=== PATIENT | male | born 1945 | race Caucasian/White ===

== ENCOUNTER 2025-06-20 13:10 | Outpatient (CLI) | payer MEDICARE, SELFPAY ==
--- OUTSIDE RECORDS SUMMARY | 2025-06-20 13:13 | XMS_ITS | Clinical Summary ---
Author Organization [facility] Address [address] [place] [address] Care Team Providers Care In Home Tutor Name Role Phone Yuli Wise Primary Care Provider [phone] Allergies No known active allergies Medications amLODIPine (NORVASC) 5 mg tablet 06/10/2020 Active aspirin 81 mg enteric coated tablet Take 1 tablet (81 mg total) by mouth daily Active losartan (COZAAR) 100 mg tablet 06/10/2020 Active niacin ER (NIASPAN) 1,000 mg CR tablet Take 1 tablet (1,000 mg total) by mouth daily Active simvastatin (ZOCOR) 40 mg tablet 07/07/2020 Active ALPRAZolam (XANAX) 0.5 mg tabletIndicatio ns:anxiety Take 1 tablet (0.5 mg total) by mouth nightly as needed for anxiety for up to 1 day 1 tablet 07/30/2024 Active carvediloL (COREG) 12.5 mg tablet Take 1 tablet (12.5 mg total) by mouth 2 (two) times a day with meals 09/29/2023 Active tamsulosin (FLOMAX) 0.4 mg extended release capsule Take 1 capsule (0.4 mg total) by mouth daily 09/29/2023 Active cyanocobalamin (Vitamin B-12) 1,000 mcg tabletIndicatio ns:Prevention of Vitamin B12 Deficiency Take 1 tablet (1,000 mcg total) by mouth daily Active multivitamin with minerals tablet Take 1 tablet by mouth daily Active oxyCODONE (ROXICODONE) 5 mg immediate release tabletIndicatio ns:Pain Take 1 tablet (5 mg total) by mouth every 4 (four) hours as needed for pain 10 tablet 08/07/2024 Active Active Problems Problem Noted Date Diagnosed Date Carpal tunnel syndrome of right wrist 07/29/2024 Surgical History Surgery Date Site/Laterality Comments TONSILLECTOMY CATARACT EXTRACTION, BILATERAL CARPAL TUNNEL RELEASE 08/07/2022 Left Medical History Medical History Date Comments Hypercholesteremia Hypertension Family History Medical History Relation Name Comments No Known Problems Father No Known Problems Mother Relation Name Status Comments Father Mother Social History Tobacco Use Types Packs/Day Years Used Date Smoking Tobacco: Former Smokeless Tobacco: Never Alcohol Use Standard Drinks/Week Comments Never 0 (1 standard drink = 0.6 oz pur e alcohol) AUDIT-C Answer Date Recorded Q1: How often do you have a drink containing alcohol? Never 08/07/2024 Q2: How many drinks containi ng alcohol do you have on a typical day when you are drinking? Patient does not drink Q3: How often do you have si x or more drinks on one occasion? Never 08/07/2024 Personal Safety Answer Date Recorded Have you ever been in or are you currently in a harmful physical or emotional relationship or is someone making you feel afraid or unsafe? Denies 08/07/2024 Sex and Gender Information Value Date Recorded Sex Assigned at Not on file Legal Sex Male 12:11 PM AU PAIR Gender Identity Not on file Sexual Orientation Not on file Occupation Industry Job Start Date Job End Date retired Not on file Not on file Not on file Last Filed Vital Signs Vital Sign Reading Time Taken Comments Blood Pressure 124/71 08/07/2024 10:30 AM AU PAIR Pulse 57 08/07/2024 10:30 AM AU PAIR Temperature 36.1 C (97 F) 08/07/2024 10:15 AM AU PAIR Respiratory Rate 16 08/07/2024 10:3 0 AM AU PAIR Oxygen Saturation 94% 08/07/2024 10: 30 AM AU PAIR Inhaled Oxygen Concentration - - Weight 112.1 kg (247 lb 1.6 oz) 08/07/2024 8:40 AM AU PAIR Height 177.8 cm (5' 10) 08/07/2024 8:40 AM AU PAIR Body Mass Index 35.46 08/07/2024 8:40 AM AU PAIR Plan of Treatment Health Maintenance Due Date Last Done Comments Depression Screening 1945 Hepatitis C Screening 1945 DTaP/Tdap/Td Vaccine (1 - Tdap) 11/02/1958 Hepatitis B Screening 11/02/1965 Pneumococcal vaccine 65+ (1 of 1 - PCV) 11/02/1997 Abdominal Aortic Aneurysm (A AA) Screen 11/02/2012 Well Visit 65+ 11/02/2012 Covid-19 Vaccine (6 2024-2 6 season) 2025 05/27/2022, 10/29/2021, 05/26/2021, Additional history exists Influenza Vaccine (#1) 2025 , 03/19/2021, 03/23/2020, Additional history exists Fall Risk Assessment 08/07/2025 08/07/2024 Zoster Vaccine Completed 06/21/2019, 04/15/2019 Insurance [facility] Address: [facility] [id number] [place] [id number] [facility] MEDICARE Care Teams In Home Tutor Relationship Specialty Start Date End Date Yuli Wise PA [address] [place] [id number] PCP - General Family Practice 07/29/24
--- OUTSIDE RECORDS SUMMARY | 2025-06-20 13:13 | XMS_ITS | Encounter Summary ---
Author Organization [facility] Address [facility] [place] [address] Care Team Providers Care Drupal Php Developer Name Role Phone Anselmo Trevino MD Primary Care Provider [phone] Merle Little Primary Care Provider [phone] Yuli Wise PA-C Primary Care Provider [phone] Encounter Details Date Type Department Care Team (Late st Contact Info) Description 01/17/2020 Prep for Procedure [facility] [address] [place], [place] [id number] Rock Arguello MD [address] [id number] Social History Tobacco Use Types Packs/Day Years Used Date Smoking Tobacco: Former Cigarettes Q uit: 2008 Smokeless Tobacco: Never Alcohol Use Standard Drinks/Week Comments No 0 (1 standard drink = 0.6 oz pur e alcohol) AUDIT-C Answer Date Recorded Frequency of Alcohol Consumption Never 12/17/2018 Average Number of Drinks Not on file 019 Frequency of Binge Drinking Not on file 11/29 Sex and Gender Information Value Date Recorded Sex Assigned at Male 09/19/2024 8:47 AM STEAM TENDER Legal Sex Male 8:34 PM CDT Gender Identity Male 09/19/2024 9:04 AM STEAM TENDER Sexual Orientation Not on file COVID-19 Exposure Response Date Recorded In the last month, have you been in contact with someone who was confirmed or suspected to have Coronavirus / COVID-19? No / Unsure 12/27/2019 1:09 PM CDT documented as of this encounter Plan of Treatment Upcoming Encounters Date Type Department Care Team (Late st Contact Info) Description 06/11/2026 9:30 AM STEAM TENDER Office Visit [facility] [address] [place] [address] Derrick Bautista MD Three [facility]. [address] [address] documented as of this encounter Visit Diagnoses Diagnosis Pre-op testing- Primary Preoperative examination, unspecified documented in this encounter Additional Health Concerns Infection Onset Date Last Indicated Resolved Time COVID-19 Rule Out 01/22/2020 01/23/2020 01/24/2020 8:57 AM CDT documented as of this encounter Care Teams Drupal Php Developer Relationship Specialty Start Date End Date Anselmo Trevino MD [address] [place] [address] PCP - General INTERNAL MEDICINE 12/17/18 03/08/22 Merle Little PA [address] [place] [address] PCP - General PHYSICIAN SALES REPRESENTATIVE GIRLS' APPAREL 03/09/22 02/27/24 Ylui Wise PA-C [address] [place], [place] [address] [place] [address] PCP - General PHYSICIAN SALES REPRESENTATIVE GIRLS' APPAREL 02/28/24 documented as of this encounter
--- OUTSIDE RECORDS SUMMARY | 2025-06-20 13:13 | XMS_ITS | Patient Health Record ---
Author Organization [facility] Address [address] [place], [place] [id number] Care Team Providers Care Taker Off Hemp Fiber Name Role Phone KEVEN Baxter Unavailable Anselmo Trevino Unavailable Unavailable Reason For Referral No Information Social History Social History Additional Details Category Social Info Options Details Migrated Social History Migrated Social History Smoking Status : Never smoked , History of tobacco use : Plan Of Treatment No Information Insurance Providers Payer Name Payer Address Payer Phone Subscriber Number Group Number Insured Name Patient Relationship to Insured Coverage Start Date Coverage End Date [facility] [address] [address] [place] [id number] SHIRA BYNUM Self - patient is the insured
--- OUTSIDE RECORDS SUMMARY | 2025-06-20 13:13 | XMS_ITS | Clinical Summary ---
Author Organization [facility] Address [facility] [place] [address] Care Team Providers Care Cosmetic Account Coordinator Name Role Phone Yuli Wise PA-C Primary Care Provider [phone] Allergies No known active allergies Medications amlodipine 5 MG tablet Take 1 tablet (5 mg total) by mouth daily. 09/04/2018 Active losartan 100 MG tablet Take 1 tablet (100 mg total) by mouth daily. 09/04/2018 Active simvastatin 40 MG tablet Take 1 tablet (40 mg total) by mouth nightly at bedtime. 09/04/2018 Active niacin CR 1000 MG tablet Take 1 tablet (1,000 mg total) by mouth daily with supper. Active tamsulosin (FLOMAX) 0.4 MG Cap Take 1 capsule (0.4 mg total) by mouth daily. 03/27/2024 Active carvedilol (COREG) 12.5 MG tablet Take 1 tablet (12.5 mg total) by mouth 2 (two) times daily. 04/15/2024 Active vitamin B-12 (CYANOCOBALAMIN ) (CYANOCOBALAMIN ) 1000 mcg tablet Take 1 tablet (1,000 mcg total) by mouth daily. Active multi vitamin/mineral s (CENTRUM ADULTS) tablet Take 1 tablet by mouth daily. Active aspirin EC (ECOTRIN) 81 MG tablet Take 1 tablet (81 mg total) by mouth daily. 06/10/2024 Active Active Problems No known active problems Encounters Date Type Department Care Team Description 06/09/2025 9:15 AM ENTRY LEVEL PARALEGAL Office Visit [facility] [address] [place] [address] Mariana Chi FNP Follow Up (Coronary artery calcification); Aortic Valve Stenosis; Hypertension; Lipids 06/09/2025 Travel 05/30/2025 Abstract [facility] THREE [facility] [place] [address] Jesus Cronin MA 04/26/2025 4:51 PM CDT - 04/26/2025 6:25 PM CDT Emergency [facility] Emergency Room [address] [place] [address] Yanira Musa MD Skin Lesion With Prolonged Bleeding (Bleeding from area of earlier fish hook removal) Discharge Disposition: Home or Self Care (Routine Discharge) 04/26/2025 9:27 AM CDT - 04/26/2025 10:30 AM CDT Emergency [facility] Emergency Room [address] [place] [address] Yanira Musa MD Finger Injury Discharge Disposition: Home or Self Care (Routine Discharge) 04/26/2025 Travel from Last 3 Months Immunizations Immunization Administration Dates Next Due Fluzone High Dose - >Age 65 (Prefilled Syringe) 03/19/2021,03/23/2020,04/15/2019,2017,04/16/2017,04/05/2016,04/13/2015 Influenza Adult (Generic) 03/28/2022,04/28/2014 MODERNA COVID-19 BIVALENT (1 2+), MRNA, LNP-S, PF 05/27/2022 MODERNA COVID-19 (12+) MRNA, LNP-S, PF, 100 MCG/ 0.5 ML DOSE 10/29/2021,05/26/2021,10/01/2020,2020 Shingrix 06/21/2019,04/15/2019 Tdap (Boostrix) 04/26/2025 Social History Tobacco Use Types Packs/Day Years Used Date Smoking Tobacco: Former Cigarettes Q uit: 2008 Smokeless Tobacco: Never Tobacco Cessation:Counseling Given: No Alcohol Use Standard Drinks/Week Comments No 0 (1 standard drink = 0.6 oz pur e alcohol) AUDIT-C Answer Date Recorded Frequency of Alcohol Consumption Never 12/17/2018 Average Number of Drinks Not on file 019 Frequency of Binge Drinking Not on file 11/29 PHQ-2 Answer Date Recorded Patient Health Questionnaire-2 Score 0 09/19/2024 Sex and Gender Information Value Date Recorded Sex Assigned at Male 09/19/2024 8:47 AM ENTRY LEVEL PARALEGAL Legal Sex Male 8:34 PM CDT Gender Identity Male 09/19/2024 9:04 AM ENTRY LEVEL PARALEGAL Sexual Orientation Not on file Last Filed Vital Signs Vital Sign Reading Time Taken Comments Blood Pressure 150/70 06/09/2025 9:02 AM ENTRY LEVEL PARALEGAL Pulse 63 06/09/2025 9:02 AM ENTRY LEVEL PARALEGAL Temperature 36.6 C (97.9 F) 04/26/2025 4:57 PM CDT Respiratory Rate 17 04/26/2025 4:57 PM CDT Oxygen Saturation 96% 06/09/2025 9:02 AM ENTRY LEVEL PARALEGAL Inhaled Oxygen Concentration - - Weight 109.8 kg (242 lb) 06/09/2025 9:02 AM ENTRY LEVEL PARALEGAL Height 177.8 cm (5' 10) 06/09/2025 9:02 AM ENTRY LEVEL PARALEGAL Body Mass Index 34.72 06/09/2025 9:02 AM ENTRY LEVEL PARALEGAL Plan of Treatment Upcoming Encounters Date Type Department Care Team (Late st Contact Info) Description 06/11/2026 9:30 AM ENTRY LEVEL PARALEGAL [facility] [address] [place] [address] Derrick Bautista MD [facility]. [address] [address] Health Maintenance Due Date Last Done Comments Hepatitis C 11/02/1965 Pneumococcal Vaccine: 50+ Years (1 of 2 - PCV) 11/02/1966 Annual Medicare Wellness Visit 11/02/2012 RSV Immunization or 60+ Years (1 - 1-dose 75+ series) 11/02/2022 COVID-19 Vaccine ( - season) 2025 05/27/2022, 10/29/2021, 05/26/2021, Additional history exists Influenza Adult (#1) 2025 03/28/2022, 03/19/2021, 03/23/2020, Additional history exists DTaP, Tdap and Td Vaccines (2 - Td or Tdap) 04/26/2035 04/26/2025 Zoster Vaccines Completed 06/21/2019, 04/15/2019 Colorectal Cancer Screening Colonoscopy (10 Years) Discontinued 01/24/2020 PHQ-2 (Physician [place]) Completed 09/19/2024 Hepatitis A Vaccines Aged Out No long er eligible based on patient's age to complete this topic Meningococcal B Vaccine Aged Out No l onger eligible based on patient's age to complete this topic Meningococcal Vaccine Aged Out No morgan mehdi eligible based on patient's age to complete this topic RSV Immunizations Under 20 Months Aged Out No longer eligible based on patient's age to complete this topic Procedures Procedure Name Priority Date/Time Associated Diagnosis Comments LACERATION REPAIR Routine 04/26/2025 6:2 5 PM CDT FOREIGN BODY REMOVAL Routine 04/26/2025 10:24 AM CDT from Last 3 Months Results * Lac Repair (04/26/2025 6:25 PM CDT) Narrative Yanira Musa MD - 04/26/2025 6:25 PM CDT Yanira Musa MD 04/27/2025 10:40 PM Lac Repair Date/Time: 04/26/2025 6:25 PM Performed by: Yanira Musa MD Authorized by: Yanira Musa MD Consent: Consent obtained: Verbal Consent given by: Patient Risks, benefits, and alternatives were discussed: yes Risks discussed: Infection, need for additional repair, poor wound healing, poor cosmetic result and pain Chrisney protocol: Procedure explained and questions answered to patient or proxy's satisfaction: yes Laceration details: Location: Finger Finger location: R index finger Length (cm): 0.4 Depth (mm): 3 Pre-procedure details: Preparation: Patient was prepped and draped in usual sterile fashion Exploration: Hemostasis obtained with: attempted with silver nitrate and txa topical without success. Treatment: Area cleansed with: Chlorhexidine Amount of cleaning: Standard Irrigation solution: Sterile saline Irrigation volume: 20 Irrigation method: Syringe Skin repair: Repair method: Sutures Suture size: 5-0 Suture material: Nylon Suture technique: Figure eight (2 simple interrupted 4-0 ethiolon sutures were not sccessful. One figure of eight added for hemostasis.) Repair type: Repair type: Intermediate Post-procedure details: Dressing: Antibiotic ointment and non-adherent dressing Procedure completion: Tolerated well, no immediate complications Yanira Musa MD PROCEDURE/MINOR SURGICAL ORD ERABLES Final Result * Foreign Body (04/26/2025 10:24 AM CDT) Narrative Yanira Musa MD - 04/26/2025 10:24 AM CDT Yanira Musa MD 04/27/2025 3:53 PM Foreign Body Date/Time: 04/26/2025 10:24 AM Performed by: Yanira Musa MD Authorized by: Yanira Musa MD Consent: Consent obtained: Verbal Consent given by: Patient Risks, benefits, and alternatives were discussed: yes Risks discussed: Bleeding, infection, pain, poor cosmetic result and nerve damage Chrisney protocol: Procedure explained and questions answered to patient or proxy's satisfaction: yes Patient identity confirmed: Verbally with patient Location: Location: Finger Finger location: R index finger Depth: Intramuscular Tendon involvement: None Pre-procedure details: Imaging: None Neurovascular status: intact Anesthesia: Anesthesia method: Local infiltration Local anesthetic: Lidocaine 1% WITH epi Procedure type: Procedure complexity: Simple Procedure details: Incision length: 2mm Foreign bodies recovered: 1 Description: Ne augustin Intact foreign body removal: yes Post-procedure details: Neurovascular status: intact Confirmation: No additional foreign bodies on visualization Skin closure: None Dressing: Antibiotic ointment and non-adherent dressing Procedure completion: Tolerated well, no immediate complications Yanira Musa MD PROCEDURE/MINOR SURGICAL ORD ERABLES Final Result from Last 3 Months Insurance [employer] MEDICARE Care Teams Cosmetic Account Coordinator Relationship Specialty Start Date End Date Yuli Wise PA-C [address] [place] [address] [address] [place] [address] PCP - General PHYSICIAN LINDERMAN OPERATOR 02/28/24
--- OUTSIDE RECORDS SUMMARY | 2025-06-20 13:13 | XMS_ITS | Encounter Summary ---
Author Organization [facility] Address [facility] [place] [address] Care Team Providers Care Mid Level Practitioner Name Role Phone Yuli Wise PA-C Primary Care Provider [phone]- [phone] Encounter Details Date Type Department Care Team (Late st Contact Info) Description 05/30/2025 Abstract [facility] [address] Jesus Cronin MA Social History Tobacco Use Types Packs/Day Years [...] Sex Assigned at Male 09/19/2024 8:47 AM REPACKER Legal Sex Male 8:34 PM CDT Gender Identity Male 09/19/2024 9:04 AM REPACKER Sexual Orientation Not on file documented as of this encounter Plan of Treatment Upcoming Encounters Date Type Department Care Team (Late st Contact Info) Description 06/11/2026 9:30 AM REPACKER [facility] [address] [place] [address] Derrick Bautista MD Three [facility]. [address] [address] documented as of this encounter Procedures Procedure Name Priority Date/Time Associated Diagnosis Comments HEMOGLOBIN, GLYCOSYLATED Routine 11/26/2024 COMPREHENSIVE METABOLIC PANEL Routine 11/26/2024 LIPID PANEL Routine 11/26/2024 CBC, MANUAL DIFF Routine 11/26/2024 THYROID STIM HORMONE TSH Routine 11/26/2024 documented in this encounter Results * COMPREHENSIVE METABOLIC PANEL (11/26/2024) SODIUM S/P/B 140 GLUCOSE 117 mg/dL AST 25 BUN 16 CREATININE S/P/B 1.02 0.7 - 1.3 CALCIUM S/P/B 9.1 POTASSIUM S/P/B 4.8 CHLORIDE S/P/B 103 ALT 25 GFR ESTIMATE 76 us Default History Genericprovider LABORATORY Final Result * LIPID PANEL (11/26/2024) CHOLESTEROL 105 TRIGLYCERIDES 134 HDL 39 LDL (CALCULATED) 44 NON HDL CHOLESTEROL 66 us Default History Genericprovider LABORATORY Final Result * CBC, MANUAL DIFF (11/26/2024) WBC 7.9 HGB 15.9 HCT 48.3 PLT 205 us Default History Genericprovider LABORATORY Final Result * HEMOGLOBIN, GLYCOSYLATED (11/26/2024) HGB A1C 5.9 % us Default History Genericprovider LABORATORY Final Result * THYROID STIM HORMONE TSH (11/26/2024) TSH 1.59 us Default History Genericprovider LABORATORY Final Result documented in this encounter Visit Diagnoses Not on filedocumented in this encounter Care Teams Mid Level Practitioner Relationship Specialty Start Date End Date Yuli Wise PA-C [facility] [place] [place] [address] PCP - General PHYSICIAN PLANT BIOLOGY PROFESSOR 02/28/24 documented as of this encounter
== END 2025-06-20 13:11 | disposition home or self-care (01) ==
LOC: ANHAUDIO 13:11
PROVIDERS: PCP Physician Assistant Medical; Visit Provider Physician Assistant Medical
DX: H91.90 Unspecified hearing loss, unspecified ear (principal)
CPT/HCPCS: 92567

== ENCOUNTER 2025-07-03 10:30 | Outpatient (CLI) | payer MEDICARE, SELFPAY ==
--- OUTSIDE RECORDS SUMMARY | 2025-07-03 11:43 | XMS_ITS | Encounter Summary ---
Author Organization [facility] Address [facility] [place] [address] Care Team Providers Care Mobile Pet Groomer Name Role Phone Yuli Wise PA-C Primary Care Provider [phone] Encounter Details Date Type Department Care Team (Late st Contact Info) Description 05/30/2025 Abstract [facility] [address] Jesus Cronin MA Social History Tobacco Use [...] Sex Assigned at Male 09/19/2024 8:47 AM SUPERVISOR LEAD REFINERY Legal Sex Male 8:34 PM CDT Gender Identity Male 09/19/2024 9:04 AM SUPERVISOR LEAD REFINERY Sexual Orientation Not on file documented as of this encounter Plan of Treatment Upcoming Encounters Date Type Department Care Team (Late st Contact Info) Description 06/11/2026 9:30 AM SUPERVISOR LEAD REFINERY [facility] [address] [place] [address] Derrick Bautista MD Three [facility]. [address] [address] documented as of this encounter Procedures Procedure [...] on filedocumented in this encounter Care Teams Mobile Pet Groomer Relationship Specialty Start Date End Date Yuli Wise PA-C [facility] [place] [address] PCP - General PHYSICIAN PHARMACEUTICAL BOTANIST 02/28/24 documented as of this encounter
--- OUTSIDE RECORDS SUMMARY | 2025-07-03 11:43 | XMS_ITS | Patient Health Record ---
Author Organization [facility] Address [address] [place], [place] [id number] Care Team Providers Care Lock And Dam Equipment Repairer Name Role Phone KEVEN Baxter Unavailable Anselmo [...] Insured Coverage Start Date Coverage End Date [facility] [address] [address] [place] [id number] SHIRA BYNUM Self - patient is the insured
--- OUTSIDE RECORDS SUMMARY | 2025-07-03 11:43 | XMS_ITS | Clinical Summary ---
Author Organization [facility] Address [facility] [place] [address] Care Team Providers Care Data Warehouse Administrator Name Role Phone Yuli Wise PA-C Primary Care Provider [phone] Allergies No known active allergies Medications amlodipine [...] Department Care Team Description 06/09/2025 9:15 AM INFANTRY WEAPONS OFFICER Office Visit [facility] [address] [place] [address] Mariana Chi FNP Follow Up (Coronary artery calcification); Aortic Valve Stenosis; Hypertension; Lipids 06/09/2025 Travel 05/30/2025 Abstract [facility] [address] [place] [address] Jesus Cronin MA 04/26/2025 4:51 PM CDT - 04/26/2025 6:25 PM CDT Emergency [facility] [address] [place] [id number] Yanira Musa MD Skin Lesion With Prolonged Bleeding (Bleeding from area of earlier fish hook removal) Discharge Disposition: Home or Self Care (Routine Discharge) 04/26/2025 9:27 AM CDT - 04/26/2025 10:30 AM CDT Emergency [facility] [address] [place] [address] Yanira Musa MD Finger Injury Discharge Disposition: [...] Sex Assigned at Male 09/19/2024 8:47 AM INFANTRY WEAPONS OFFICER Legal Sex Male 8:34 PM CDT Gender Identity Male 09/19/2024 9:04 AM INFANTRY WEAPONS OFFICER Sexual Orientation Not on file Last Filed Vital Signs Vital Sign Reading Time Taken Comments Blood Pressure 150/70 06/09/2025 9:02 AM INFANTRY WEAPONS OFFICER Pulse 63 06/09/2025 9:02 AM INFANTRY WEAPONS OFFICER Temperature 36.6 C (97.9 F) 04/26/2025 4:57 PM CDT Respiratory Rate 17 04/26/2025 4:57 PM CDT Oxygen Saturation 96% 06/09/2025 9:02 AM INFANTRY WEAPONS OFFICER Inhaled Oxygen Concentration - - Weight 109.8 kg (242 lb) 06/09/2025 9:02 AM INFANTRY WEAPONS OFFICER Height 177.8 cm (5' 10) 06/09/2025 9:02 AM INFANTRY WEAPONS OFFICER Body Mass Index 34.72 06/09/2025 9:02 AM INFANTRY WEAPONS OFFICER Plan of Treatment Upcoming Encounters Date Type Department Care Team (Late st Contact Info) Description 06/11/2026 9:30 AM INFANTRY WEAPONS OFFICER [facility] [address] [place] [phone] Derrick Bautista MD [facility]. [address] [address] Health Maintenance Due Date Last Done Comments [...] Colonoscopy (10 Years) Discontinued 01/24/2020 PHQ-2 (Physician Adrian) Completed 09/19/2024 Hepatitis A Vaccines Aged Out [...] wound healing, poor cosmetic result and pain [place] protocol: Procedure explained and questions answered to [...] pain, poor cosmetic result and nerve damage [place] protocol: Procedure explained and questions answered to [...] 3 Months Insurance [employer] MEDICARE Care Teams Data Warehouse Administrator Relationship Specialty Start Date End Date Yuli Wise PA-C [address] [place] [address] [address] [place] [address] PCP - General PHYSICIAN CUSTOMER ASSISTANCE REPRESENTATIVE 02/28/24
--- OUTSIDE RECORDS SUMMARY | 2025-07-03 11:43 | XMS_ITS | Clinical Summary ---
Author Organization [facility] Address [address] [place] [address] Care Team Providers Care Eyeglass Maker Name Role Phone Yuli Wise Primary Care Provider [phone] Allergies No known active allergies Medications amLODIPine [...] on file Legal Sex Male 12:11 PM NAIL SPECIALIST Gender Identity Not on file Sexual Orientation Not on file Occupation Industry Job Start Date Job End Date retired Not on file Not on file Not on file Last Filed Vital Signs Vital Sign Reading Time Taken Comments Blood Pressure 124/71 08/07/2024 10:30 AM NAIL SPECIALIST Pulse 57 08/07/2024 10:30 AM NAIL SPECIALIST Temperature 36.1 C (97 F) 08/07/2024 10:15 AM NAIL SPECIALIST Respiratory Rate 16 08/07/2024 10:3 0 AM NAIL SPECIALIST Oxygen Saturation 94% 08/07/2024 10: 30 AM NAIL SPECIALIST Inhaled Oxygen Concentration - - Weight 112.1 kg (247 lb 1.6 oz) 08/07/2024 8:40 AM NAIL SPECIALIST Height 177.8 cm (5' 10) 08/07/2024 8:40 AM NAIL SPECIALIST Body Mass Index 35.46 08/07/2024 8:40 AM NAIL SPECIALIST Plan of Treatment Health Maintenance Due Date [...] 08/07/2024 Zoster Vaccine Completed 06/21/2019, 04/15/2019 Insurance [facility] Care Teams Eyeglass Maker Relationship Specialty Start Date End Date Yuli Wise PA [address] [place] [id number] PCP - General Family Practice 07/29/24
--- OUTSIDE RECORDS SUMMARY | 2025-07-03 11:43 | XMS_ITS | Encounter Summary ---
Author Organization [facility] Address [facility] [place] [address] Care Team Providers Care Information Technology Manager Name Role Phone Anselmo Trevino MD Primary Care Provider [phone] Merle Little Primary Care Provider [phone] Yuli Wise PA-C Primary Care Provider [phone] Encounter Details Date Type Department Care Team (Late st Contact Info) Description 01/17/2020 Prep for Procedure [facility] [address] [place], [place] [id number] Rock Arguello MD [address] [id number] Social History Tobacco Use Types Packs/Day Years [...] Sex Assigned at Male 09/19/2024 8:47 AM LICENSED INSURANCE SALES AGENT Legal Sex Male 8:34 PM CDT Gender Identity Male 09/19/2024 9:04 AM LICENSED INSURANCE SALES AGENT Sexual Orientation Not on file COVID-19 Exposure Response Date Recorded In the last month, have you been in contact with someone who was confirmed or suspected to have Coronavirus / COVID-19? No / Unsure 12/27/2019 1:09 PM CDT documented as of this encounter Plan of Treatment Upcoming Encounters Date Type Department Care Team (Late st Contact Info) Description 06/11/2026 9:30 AM LICENSED INSURANCE SALES AGENT Office Visit [facility] [address] [place] [address] Derrick Bautista MD [facility] [place]. [address] [address] documented as of this encounter Visit Diagnoses Diagnosis Pre-op testing- Primary Preoperative examination, unspecified documented in this encounter Additional Health Concerns Infection Onset Date Last Indicated Resolved Time COVID-19 Rule Out 01/22/2020 01/23/2020 01/24/2020 8:57 AM CDT documented as of this encounter Care Teams Information Technology Manager Relationship Specialty Start Date End Date Anselmo Trevino MD [address] [place] [phone] PCP - General INTERNAL MEDICINE 12/17/18 03/08/22 Merle Little PA [address] [place] [address] PCP - General PHYSICIAN REFORESTATION WORKER 03/09/22 02/27/24 Yuli Wise PA-C [address] [place], [place] [address] [place] [address] PCP - General PHYSICIAN REFORESTATION WORKER 02/28/24 documented as of this encounter
== END 2025-07-03 10:31 | disposition home or self-care (01) ==
LOC: ANHAUDIO 10:30
PROVIDERS: PCP Physician Assistant Medical; Visit Provider Physician Assistant Medical
DX: H90.3 Sensorineural hearing loss, bilateral (principal)
CPT/HCPCS: 92557; 92567